=== PATIENT | female | born 1990 | race Hispanic/Latino ===

== ENCOUNTER 2017-04-28 08:51 | Outpatient (CLI) | payer MEDICAID ==
[2017-04-28] MEDS ORDERED: TYLENOL PO ONE (10:00)
[2017-04-28 10:52] LABS: Bacteria,Urine 1+ /HPF (Negative); Bilirubin,Urine NEG (Negative); Blood,Urine NEG (Negative); Ketones,Urine NEG (Negative); Leukocyte Esterase,Urine TR (Negative); Mucus,Urine FEW /HPF; Nitrite,Urine NEG (Negative); Protein,Urine <15 mg/dL mg/dL (Negative)
--- NOTE | 2017-04-28 11:15 | Ultrasound Report ---
Gestation: single Position: cephalic Amniotic Fluid: UVALDO = 19.3 cm Placenta: posterior Placental Grade: 0 Heart Rate: 141 BPM Cervical length: 4.4 cm (Normal > 3 cm) NEUROANATOMY VISUALIZED: Choroid Plexus Cisterna Magnum Cerebellum Lateral Ventricle ANATOMY VISUALIZED: Stomach Kidneys Bladder Diaphragm 4 Chamber Heart Heart 3 Vessel Cord Abd. Cord Insert SPINE VISUALIZED: Limited spine due to position BPD: 6.9 cm = 27 w 4 d HC: 25.1 cm = 27 w 2 d AC: 22.1 cm = 26 w 4 d FL: 5.0 cm = 27 w 0 d HC/AC Ratio: 1.13 Cephalic Index: 82.6 Estimated Weight: 987 grams LMP: 11/05/16/ Clinical age = 24 w 6 d EDC: 08/12/17 US Gest. Age = 27 w 1 d EDC: 08/24/17 Comment: There is no evidence of placental abruption.
== END 2017-04-28 11:30 | disposition home or self-care (01) ==
LOC: TRG 08:51
PROVIDERS: ATTEND Obstetrics & Gynecology
DX: Z34.92 Encounter for supervision of normal pregnancy, unspecified, second trimester (principal); Z3A.24 24 weeks gestation of pregnancy
CPT/HCPCS: 76805; 81001

== ENCOUNTER 2017-07-25 19:50 | Outpatient (CLI) | payer BC, MEDICAID ==
[2017-07-25 20:14] VITALS: BP 110/80
== END 2017-07-25 20:34 | disposition home or self-care (01) ==
LOC: TRG 19:50
PROVIDERS: ATTEND Obstetrics & Gynecology
DX: O26.893 Other specified pregnancy related conditions, third trimester (principal); W19.XXXA Unspecified fall, initial encounter; Z3A.37 37 weeks gestation of pregnancy; Y93.89 Activity, other specified; Y92.89 Other specified places as the place of occurrence of the external cause; Y99.8 Other external cause status
CPT/HCPCS: 59025